=== PATIENT | male | born 2000 | race African-American/Black ===

== ENCOUNTER 2023-01-28 11:54 | Emergency (ER) | payer MEDICAID ==
[~2023-01-28] VITALS: Ht 165.1 cm; Wt 79.6 kg
[2023-01-28] MEDS ORDERED: IBUPROFEN 600MG TABLET PO STA (15:35)
[2023-01-28] MEDS ORDERED: NAPR-681 PO (16:54)
[2023-01-28] MEDS ORDERED: CYCL5TAB PO (16:54)
[2023-01-28 17:26] VITALS: BP 119/75
== END 2023-01-28 17:33 | disposition home or self-care (01) ==
LOC: ER 11:54
DX: R07.81 Pleurodynia (principal); M54.50 Low back pain, unspecified; V49.40XA Driver injured in collision with unspecified motor vehicles in traffic accident, initial encounter; Y93.89 Activity, other specified; Y92.89 Other specified places as the place of occurrence of the external cause; Y99.8 Other external cause status
CPT/HCPCS: 71101; 99283